=== PATIENT | female | born 1955 | race Caucasian/White ===

== ENCOUNTER 2023-09-01 13:01 | Emergency (ER) | payer BC, MEDICARE ==
[2023-09-01 13:14] VITALS: BP 147/72; O2SAT 98
--- NOTE | 2023-09-01 13:21 | ED Physician Documentation ---
PD HPI OPHTHO - Stated complaint Stated Complaint: BLOOD LT EYE - Chief complaint Chief Complaint: Heent - History obtained from History obtained from: Patient - Additional information Additional information: Patient is a 68-year-old female presenting for evaluation of a collection of blood to her left eye that she noticed today. Denies trauma or injury. No pain or changes to her vision. Denies a headache. Does not take any blood thinners. Patient reports looking in the mirror and noticing the blood and becoming alarmed. Review of Systems Eyes: denies: Loss of vision, Decreased vision Neurologic: denies: Headache PD PAST MEDICAL HISTORY - Past Medical History Past Medical History: No - Past Surgical History Past Surgical History: No - Present Medications Home Medications: Ambulatory Orders Medication Instructions Recorded Confirmed Meclizine [Antivert] 25 mg PO Q6H PRN #20 tablet 11/12/14 - Allergies Allergies/Adverse Reactions: Allergies Allergy/AdvReac Type Severity Reaction Status Date / Time No Known Drug Allergies Allergy Verified 09/01/23 13:09 - Social History Does the pt smoke?: No Smoking Status: Never smoker Does the pt drink ETOH?: No Does the pt have substance abuse?: No - Immunizations Immunizations are current?: No - POLST Patient has POLST: No PD ED PE NORMAL - General General: Alert and oriented X 3, No acute distress, Well developed/nourished - HEENT HEENT: PERRL, EOMI - Respiratory Respiratory: No respiratory distress - Neuro Neuro: Normal speech PD ED PE EXPANDED - Eyes Eyes: Visual acuity - see nn, PERRL, EOMI, Normal eyelids, Subconj hemorrhage (Left eye laterally), Normal corneas Results - Vitals Vitals: Vital Signs - 24 hr 09/01/23 09/01/23 09/01/23 13:06 13:14 13:28 Temperature 36.5 C Heart Rate 97 Respiratory 16 16 16 Rate Blood Pressure 147/72 H O2 Saturation 98 Oxygen O2 Source Room air PD Medical Decision Making - ED course ED course: Patient presenting for evaluation of subconjunctival hemorrhage. No associated trauma. Visual acuity intact. No pain. No signs of foreign body. No signs of globe rupture on exam. Pupils are equal and reactive. Patient counseled regarding diagnosis. Patient counseled on concerning symptoms to return for. Departure - Departure Disposition: 01 Home, Self Care Clinical Impression: Subconjunctival hemorrhage of left eye Condition: Stable Instructions: Subconjunctival Hemorrhage Comments: You have a subconjunctival hemorrhage which is like a broken blood vessel in the eye. There is no specific treatment for this and it should resolve on its own. If you develop any symptoms such as changes to your vision, pain or have any other concerns please consider return to the ER. Forms: PCP List Discharge Date/Time: 09/01/23 13:31
== END 2023-09-01 13:31 | disposition home or self-care (01) ==
LOC: ED 13:01
DX: H11.32 Conjunctival hemorrhage, left eye (principal)
CPT/HCPCS: 99282; 99283